=== PATIENT | male | born 1965 | race Hispanic/Latino ===

== ENCOUNTER 2017-07-13 20:00 | Emergency (ER) | payer OTHER ==
[~2017-07-13] VITALS: Ht 165.1 cm; Wt 89.0 kg
[2017-07-13 20:57] LABS: HEMATOCRIT 38.8 % (38.0-50.0); HEMOGLOBIN 13.9 G/DL (12.5-16.6); MCH 29.9 PG (29.0-34.0); MCHC 35.8 G/DL (30.0-36.0); MCV 83.4 FL (86-99); PLATELET COUNT 193 K/uL (156-360); RBC DIS.WIDTH-CV 13.6 % (11.8-14.6); RBC DIS.WIDTH-SD 41.3 % (39-53); RED BLOOD COUNT 4.65 M/uL (4.00-5.50)
[2017-07-13 21:03] LABS: APPEARANCE CLOUDY ((CLEAR)); BILIRUBIN NEGATIVE; BLOOD LARGE; COLOR YELLOW ((YELLOW)); GLUCOSE (STRIP) NEGATIVE; KETONES NEGATIVE; LEUKOCYTES LARGE; NITRITE NEGATIVE; PROTEIN (STRIP) 30; SPECIFIC GRAVITY 1.006 (1.000-1.030); UROBILINOGEN 0.2 MG/DL (0.2-1.0)
[2017-07-13 21:07] LABS: INTER. NORMALIZED RATIO 1.4
[2017-07-13 21:09] LABS: ALBUMIN 3.8 g/dL (3.2-4.8); CHLORIDE 100 mEq/L (99-109); POTASSIUM 3.3 mEq/L (3.7-5.4); PTT 31.6 SEC (25-37); SODIUM 134 mEq/L (136-147)
[2017-07-13 21:10] LABS: MAGNESIUM 2.7 mg/dL (1.3-2.7)
[2017-07-13 21:12] LABS: GLUCOSE 143 mg/dL (70-99); TOTAL PROTEIN 7.5 g/dL (6.4-8.3)
[2017-07-13 21:15] LABS: ALKALINE PHOSPHATASE 81 IU/L (3-129)
[2017-07-13 21:16] LABS: UREA NITROGEN (BUN) 77 mg/dL (9-23)
[2017-07-13 21:17] LABS: AST (GOT) 21 IU/L (2-34)
[2017-07-13 21:18] LABS: ALT (GPT) 17 IU/L (3-49)
[2017-07-13 21:19] LABS: GFR ESTIMATE (CALCULATED) 8 mL/min/ (58.99-99999); LIPASE 56 U/L (1.0-51.0); TROP-I INTERPRETATION NEGATIVE; TROPONIN-I 0.02 ng/mL (0.0-0.30)
[2017-07-13 21:51] LABS: RED BLOOD CELLS TNTC /HPF (0-5); WHITE BLOOD CELLS 30-40 /HPF (0-5)
[2017-07-13 21:52] LABS: EPITHELIAL CELLS 1+ /HPF; MUCUS RARE /LPF
[2017-07-13 21:53] LABS: BACTERIA RARE /HPF; UCUL ADDED? YES
[2017-07-14 00:24] VITALS: BP 136/95
== END 2017-07-14 00:15 | disposition short-term general hospital (02) ==
LOC: EME 20:00
PROVIDERS: Emergency Medicine Emergency Medical Services
PROC: 0T9B70Z Drainage of Bladder with Drainage Device, Via Natural or Artificial Opening (ICD-10-PCS; principal; 2017-07-13)
DX: N17.9 Acute kidney failure, unspecified (principal); K72.00 Acute and subacute hepatic failure without coma; E87.70 Fluid overload, unspecified; R60.0 Localized edema; R18.8 Other ascites; N39.0 Urinary tract infection, site not specified; R31.9 Hematuria, unspecified; Z87.891 Personal history of nicotine dependence
CPT/HCPCS: 71045; 74176; 80053; 81003; 83690; 83735; 83880; 84484; 85027; 85610; 85730; 87086; 93005; 99281; 99285; J0696